=== PATIENT | female | born 1970 | race African-American/Black ===

== ENCOUNTER 2017-10-03 17:19 | Emergency (ER) | payer BC ==
[2017-10-03] MEDS ORDERED: ASPIRIN 81 MG TABLET, CHEWABLE PO ONE (17:58)
--- NOTE | 2017-10-03 17:59 | ER Document Report ---
ED Medical Screen (RME) - General Chief Complaint: Anxiety Stated Complaint: CHEST/HAND NUMBNESS Time Seen by Provider: 10/03/17 17:50 Mode of Arrival: Wheelchair Information source: Patient Notes: 46-year-old female history of 1 previous cardiac stent hypertension and anxiety presents with complaints of chest tingling sensation as well as shortness of breath. Patient denies any fevers or chills admits to tingling sensation in the hands feet I have greeted and performed a rapid initial assessment of this patient. A comprehensive ED assessment and evaluation of the patient, analysis of test results and completion of the medical decision making process will be conducted by additional ED providers. PHYSICAL EXAMINATION: GENERAL: Well-appearing, well-nourished and in no acute distress. HEAD: Atraumatic, normocephalic. EYES: Pupils equal round extraocular movements intact, conjunctiva are normal. ENT: Nares patent NECK: Normal range of motion LUNGS: No respiratory distress Musculoskeletal: Normal range of motion NEUROLOGICAL: Normal speech, normal gait. PSYCH: Anxious SKIN: Warm, Dry, normal turgor, no rashes or lesions noted. - Related Data Allergies/Adverse Reactions: No Known Allergies Allergy (Unverified 10/03/17 17:23) Physical Exam - Vital signs Vitals: Temp Pulse Resp BP Pulse Ox 98.4 F 109 H 20 117/76 100 10/03/17 17:30 10/03/17 17:30 10/03/17 17:30 10/03/17 17:30 10/03/17 17:30 Course - Vital Signs Vital signs: Temp Pulse Resp BP Pulse Ox 98.4 F 109 H 20 117/76 100 10/03/17 17:30 10/03/17 17:30 10/03/17 17:30 10/03/17 17:30 10/03/17 17:30 Doctor's Discharge - Discharge Instructions: Anxiety ([facility])
[2017-10-03 18:15] LABS: ABSOLUTE BASOPHILS # (AUTO) 0.1 10^3/uL (0.0-0.2); ABSOLUTE LYMPHOCYTES (AUTO) 0.7 10^3/uL (0.5-4.7); ABSOLUTE MONOCYTES (AUTO) 0.7 10^3/uL (0.1-1.4); ABSOLUTE NEUT (AUTO) 4.3 10^3/uL (1.7-8.2); BASOPHILS % (AUTO) 1.1 % (0-2); EOSINOPHILS % (AUTO) 0.6 % (0-6); HEMATOCRIT 30.5 % (36.0-47.0); HEMOGLOBIN 9.4 g/dL (12.0-15.5); LYMPHOCYTES % (AUTO) 12.4 % (13-45); MEAN CORPUSCULAR HEMOGLOBIN 20.5 pg (27.0-33.4); MEAN CORPUSCULAR HGB CONC 30.9 g/dL (32.0-36.0); MEAN CORPUSCULAR VOLUME 66 fl (80-97); MONOCYTES % (AUTO) 12.6 % (3-13); PLATELET COUNT 234 10^3/uL (150-450); RED BLOOD COUNT 4.59 10^6/uL (3.72-5.28); RED CELL DISTRIBUTION WIDTH 20.2 % (11.5-14.0); SEGMENTED NEUTROPHILS % (AUTO) 73.3 % (42-78); TOTAL CELLS COUNTED % (AUTO) 100 %; WHITE BLOOD COUNT 5.9 10^3/uL (4.0-10.5)
[2017-10-03 18:31] LABS: ALANINE AMINOTRANSFERASE 24 U/L (9-52); ALBUMIN 4.3 g/dL (3.5-5.0); ALKALINE PHOSPHATASE 72 U/L (38-126); ANION GAP 15 (5-19); ASPARTATE AMINO TRANSFERASE 30 U/L (14-36); BILIRUBIN,DIRECT 0.4 mg/dL (0.0-0.4); BILIRUBIN,TOTAL 0.4 mg/dL (0.2-1.3); BLOOD UREA NITROGEN 12 mg/dL (7-20); CALCIUM 9.8 mg/dL (8.4-10.2); CARBON DIOXIDE 19 mmol/L (22-30); CHLORIDE 106 mmol/L (98-107); CREATINE KINASE 150 U/L (30-135); GLUCOSE 91 mg/dL (75-110); POTASSIUM 3.5 mmol/L (3.6-5.0); SODIUM 139.7 mmol/L (137-145); TOTAL PROTEIN 8.6 g/dL (6.3-8.2)
[2017-10-03 18:44] LABS: CREATINE KINASE MB < 0.22 ng/mL (<4.55); TROPONIN I < 0.012 ng/mL
[2017-10-03] MEDS ORDERED: NORMAL SALINE 1000 ML 1,000 ML IV ONE (19:06)
--- NOTE | 2017-10-03 19:10 | RADIOLOGY REPORT (SQ) ---
EXAM DESCRIPTION: CHEST SINGLE VIEW COMPLETED DATE/TIME: 10/03/2017 6:54 pm REASON FOR STUDY: chest pain COMPARISON: None. EXAM PARAMETERS: NUMBER OF VIEWS: One view. TECHNIQUE: Single frontal radiographic view of the chest acquired. RADIATION DOSE: NA LIMITATIONS: None. FINDINGS: LUNGS AND PLEURA: No opacities, masses or pneumothorax. No pleural effusion. MEDIASTINUM AND HILAR STRUCTURES: No masses. Contour normal. HEART AND VASCULAR STRUCTURES: Heart normal in size. Normal vasculature. BONES: No acute findings. HARDWARE: None in the chest. OTHER: No other significant finding. IMPRESSION: NO ACUTE RADIOGRAPHIC FINDING IN THE CHEST. TECHNICAL DOCUMENTATION: JOB ID: [id number] [employer]- All Rights Reserved Reading location - IP/workstation name: [email or web address]
[2017-10-03 19:14] LABS: APPEARANCE,URINE CLOUDY; BILIRUBIN,URINE NEGATIVE (NEGATIVE); COLOR,URINE YELLOW; GLUCOSE, URINE NEGATIVE (NEGATIVE); KETONES,URINE NEGATIVE (NEGATIVE); LEUKOCYTE ESTERASE,URINE SMALL (NEGATIVE); NITRITE,URINE NEGATIVE (NEGATIVE); PROTEIN,URINE 100 mg/dL (NEGATIVE); URINE SPECIFIC GRAVITY 1.028
[2017-10-03] MEDS ORDERED: MAGNESIUM SULFATE/D5W 1 GM/100 ML RTUPB IV ONE (19:47)
[2017-10-03] MEDS ORDERED: POTASSIUM CHLORIDE 10 MEQ TABLET.SA PO ONE (19:47)
--- NOTE | 2017-10-03 20:01 | EKG REPORT ---
SEVERITY:- BORDERLINE ECG - SINUS TACHYCARDIA PROBABLE LEFT ATRIAL ABNORMALITY DIFFUSE NONSPECIFIC ST-T CHANGES : Confirmed by: Lm Campoverde MD 03-Oct-2017 20:01:16
[2017-10-03] MEDS ORDERED: HYDROXYZINE PAMOATE 25 MG CAPSULE PO ONE (21:13)
--- NOTE | 2017-10-03 21:17 | ER Document Report ---
ED General - General Chief Complaint: Anxiety Stated Complaint: CHEST/HAND NUMBNESS Time Seen by Provider: 10/03/17 17:50 Mode of Arrival: Wheelchair - HPI Patient complains to provider of: Numbness and tingling anxiety Notes: Patient coming in stating feeling unwell numbness and tingling in her hands and feet patient states similar to anxiety in the past. Patient that she has a history of anxiety. Upon my evaluation patient is hyperventilating sitting in her hands and feet feel cold. Patient is on any medication for anxiety. Denies any trauma denies fevers chills nausea vomiting diarrhea chest pain abdominal pain. Patient looks anxious upon my evaluation. - Related Data Allergies/Adverse Reactions: No Known Allergies Allergy (Unverified 10/03/17 17:23) Past Medical History - General Information source: Patient - Social History Smoking Status: Current Some Day Smoker Frequency of alcohol use: Occasional Drug Abuse: None Family History: Reviewed & Not Pertinent Patient has suicidal ideation: No Patient has homicidal ideation: No - Past Medical History Cardiac Medical History: Reports: Hx Heart Attack, Hx Hypercholesterolemia, Hx Hypertension Renal/ Medical History: Denies: Hx Peritoneal Dialysis Past Surgical History: Reports: Hx Cardiac Catheterization - stent, Hx Section Review of Systems - Review of Systems Constitutional: No symptoms reported EENT: No symptoms reported Cardiovascular: No symptoms reported Respiratory: No symptoms reported Gastrointestinal: No symptoms reported Genitourinary: No symptoms reported Female Genitourinary: No symptoms reported Musculoskeletal: No symptoms reported Skin: No symptoms reported Hematologic/Lymphatic: No symptoms reported Neurological/Psychological: Tingling -: Yes All other systems reviewed and negative Physical Exam - Vital signs Vitals: Temp Pulse Resp BP Pulse Ox 98.4 F 109 H 20 117/76 100 10/03/17 17:30 10/03/17 17:30 10/03/17 17:30 10/03/17 17:30 10/03/17 17:30 Interpretation: Normal - General General appearance: Appears well, Alert - HEENT Head: Normocephalic, Atraumatic Eyes: Normal Pupils: PERRL - Respiratory Respiratory status: No respiratory distress Chest status: Nontender Breath sounds: Normal Chest palpation: Normal - Cardiovascular Rhythm: Regular Heart sounds: Normal auscultation Murmur: No - Abdominal Inspection: Normal Distension: No distension Bowel sounds: Normal Tenderness: Nontender Organomegaly: No organomegaly - Back Back: Normal, Nontender - Extremities General upper extremity: Normal inspection, Nontender, Normal color, Normal ROM , Normal temperature General lower extremity: Normal inspection, Nontender, Normal color, Normal ROM , Normal temperature, Normal weight bearing. No: Colby's sign - Neurological Neuro grossly intact: Yes Cognition: Normal Orientation: AAOx4 Teressa Coma Scale Eye Opening: Spontaneous Teressa Coma Scale Verbal: Oriented Teressa Coma Scale Motor: Obeys Commands Wenden Coma Scale Total: 15 Speech: Normal Motor strength normal: LUE, RUE, LLE, RLE Sensory: Normal - Psychological Associated symptoms: Normal affect, Normal mood - Skin Skin Temperature: Warm Skin Moisture: Dry Skin Color: Normal Course - Re-evaluation Re-evalutation: 10/03/17 22:58 Patient laboratory studies shows chronic anemia. Patient also has low potassium and low magnesium. These were replaced. Patient states she is aware of the chronic anemia. Otherwise laboratory studies not show any signs of significant pathology. Patient will be started on Vistaril for anxiety otherwise recommend patient follow with primary care physician for further evaluation. - Vital Signs Vital signs: Temp Pulse Resp BP Pulse Ox 98.4 F 109 H 18 115/75 98 10/03/17 17:30 10/03/17 17:30 10/03/17 19:01 10/03/17 19:00 10/03/17 19:01 - Laboratory Result Diagrams: 10/03/17 18:07 10/03/17 18:07 Laboratory results interpreted by me: 10/03/17 10/03/17 10/03/17 18:07 18:07 18:07 Hgb 9.4 L Hct 30.5 L MCV 66 L MCH 20.5 L MCHC 30.9 L RDW 20.2 H Lymphocytes % 12.4 L Potassium 3.5 L Carbon Dioxide 19 L Magnesium 1.5 L Creatine Kinase 150 H Total Protein 8.6 H Urine Protein Urine Urobilinogen Ur Leukocyte Esterase 10/03/17 19:01 Hgb Hct MCV MCH MCHC RDW Lymphocytes % Potassium Carbon Dioxide Magnesium Creatine Kinase Total Protein Urine Protein 100 H Urine Urobilinogen 2.0 H Ur Leukocyte Esterase SMALL H Discharge - Discharge Clinical Impression: Dehydration, Hypokalemia, Hypomagnesemia, Chronic anemia Dyspnea Qualifiers: Dyspnea type: unspecified Qualified Code(s): R06.00 - Dyspnea, unspecified Condition: Good Instructions: Anemia ([facility]), Anxiety ([facility]), Dehydration ([facility]), Dyspnea, Nonspecific ([facility]), Hypokalemia ([facility]) Additional Instructions: Your chest x-ray laboratory findings today did not show any significant pathology except for low potassium and low magnesium. Please make sure you are eating a healthy diet to have these replaced. Laboratory studies also show a chronic anemia please make sure he follow-up with your primary care physician for further evaluation of this. Return to ER if symptoms worsen. Do believe some your symptoms are anxiety related therefore we will start you on medication called Vistaril. Please take as prescribed. Prescriptions: Hydroxyzine Pamoate [Vistaril 25 mg Capsule] 25 mg PO DAILY #30 capsule
[2017-10-04 02:39] VITALS: BP 117/69
== END 2017-10-03 22:30 | disposition home or self-care (01) ==
LOC: ER 17:19
DX: E86.0 Dehydration (principal); E87.6 Hypokalemia; E83.42 Hypomagnesemia; D64.89 Other specified anemias; R06.00 Dyspnea, unspecified; F41.9 Anxiety disorder, unspecified; R20.0 Anesthesia of skin; E78.00 Pure hypercholesterolemia, unspecified; I10 Essential (primary) hypertension; I25.2 Old myocardial infarction
CPT/HCPCS: 93005; 99284; 96361; 96365; 36415; 82553; 82550; 83735; 84703; 85025; 80053; 81001; 84484; 71045; 93010; J3475; J7030